=== PATIENT | female | born 1995 | race Hispanic/Latino ===

== ENCOUNTER 2023-03-19 18:40 | Emergency (ER) | payer SELFPAY ==
[2023-03-19] MEDS ORDERED: Ketorolac Tromethamine 30 MG/ML VIAL ONE (20:18)
== END 2023-03-19 21:05 | disposition home or self-care (01) ==
LOC: ERS 18:40
DX: M54.50 Low back pain, unspecified (principal)
CPT/HCPCS: 72100; 96372; J1885